=== PATIENT | female | born 1955 | race Caucasian/White ===

== ENCOUNTER 2019-04-24 21:11 | Emergency (ER) | payer OTHER ==
[~2019-04-24] VITALS: Ht 177.8 cm; Wt 49.9 kg
--- NOTE | 2019-04-24 21:40 | NUR ---
at bedside for MSE
--- NOTE | 2019-04-24 21:42 | NUR ---
Rad. tech at bedside for foot xray
[2019-04-24] MEDS ORDERED: ACETAMINOPHEN ES 500 MG TABLET PO ONE (21:45)
[2019-04-24] MEDS ORDERED: ACETAMINOPHEN ES 500 MG TABLET ONE (21:58)
--- NOTE | 2019-04-24 22:17 | NUR ---
Patient discharged to home in stable conditon. Written and verbal after care instructions given. Patient verbalizes understanding of instructions. Pt. d/c w/ prescription per MD order, d/c papers signed, all belongings w/ pt., ID band removed, ambulated off unit w/ steady gait accompanied by son, instructed not to drive, NAD
== END 2019-04-24 22:23 | disposition home or self-care (01) ==
LOC: ER 21:13
DX: S92.424A Nondisplaced fracture of distal phalanx of right great toe, initial encounter for closed fracture (principal); W22.8XXA Striking against or struck by other objects, initial encounter; Y93.89 Activity, other specified; Y92.89 Other specified places as the place of occurrence of the external cause; Y99.8 Other external cause status
CPT/HCPCS: 73630; A4663; A9150

== ENCOUNTER 2023-07-22 11:26 | Emergency (ER) | payer MEDICARE, OTHER ==
[~2023-07-22] VITALS: Ht 177.8 cm; Wt 47.6 kg
[2023-07-22] MEDS ORDERED: [UNRECOGNIZED DRUG - CODE] PO (12:20)
[2023-07-22] MEDS ORDERED: HYDR-3980 PO (13:58)
[2023-07-22 14:00] VITALS: BP 120/70; O2SAT 97
== END 2023-07-22 14:44 | disposition home or self-care (01) ==
LOC: ER 11:26
DX: M47.812 Spondylosis without myelopathy or radiculopathy, cervical region (principal); J01.00 Acute maxillary sinusitis, unspecified; Z79.899 Other long term (current) drug therapy
CPT/HCPCS: 70450; 72125; A4663